=== PATIENT | male | born 1985 | race Caucasian/White ===

== ENCOUNTER 2018-07-06 17:22 | Inpatient (IN) ==
[2018-07-06 18:30] LABS: Apearance,Urine CLEAR (Clear); Bilirubin,Urine Negative (Negative); Blood, Urine Small mg/dL (Negative); Glucose,Urine (UA) Negative (Negative); Ketones,Urine Negative (Negative); Mucus,Urine Occasional /LPF (Occasional); Nitrite,Urine Negative (Negative); Protein,Urine 30 MG/DL; RBC,Urine 5 /HPF (0-4); Squamous Epithelial Cell,Urine Occasional /HPF (0-10); Urine Color Yellow (Yellow); Urine Specific Gravity 1.016 (1.001-1.035); Urine Urobilinogen < 2.0 EU/DL (0.2-1.0); WBC,Urine 6 /HPF (0-6)
[2018-07-06] MEDS ORDERED: SODIUM CHLORIDE 0.9% 1,000 ML IV STA (18:34)
[2018-07-06] MEDS ORDERED: LEVOFLOXACIN INJ 750 MG in PREMIX 1 EACH IV STA (18:34)
[2018-07-06] MEDS ORDERED: IBUPROFEN 800 MG TABLET PO STA (18:34)
[2018-07-06] MEDS ORDERED: VANCOMYCIN INJ 1,000 MG in SODIUM CHLORIDE 0.9% 250 ML IV STA ×2 (18:34→18:59)
[2018-07-06 19:37] LABS: Basophils % 0.2 % (0.0-0.8); Eosinophils # 0.1 10*3/uL (0.0-0.87); Eosinophils % 0.6 % (0.00-10.9); Hematocrit 43.5 VOL% (42.0-52.0); Hemoglobin 14.5 GM/DL (14.0-18.0); Immature Granulocytes % 0.4 %; Immature Granulocytes Absolute 0.05 #; Lymphocytes # 1.1 10*3/uL (1.4-4.0); Lymphocytes % 9.1 % (21.2-54.2); Mean Corpuscular HGB Conc 33.3 GM/DL (32-36); Mean Corpuscular Hemoglobin 29 PG (27-34); Mean Corpuscular Volume 85.8 FL (87-102); Monocytes # 1.1 10*3/uL (0.11-0.8); Monocytes % 9.4 % (1.7-12.7); Neutrophils # 9.8 10*3/uL (1.4-7.4); Neutrophils % 80.3 % (38.7-73.9); Platelet Count 340 T/CUMM (130-400); Red Blood Count 5.07 MC/CUMM (3.8-5.5); Red Cell Distribution Width 12.9 % (9.3-17.3); White Blood Count 12.2 T/CUMM (4-12)
[2018-07-06] MEDS ORDERED: DOCUSATE SODIUM 100 MG CAPSULE PO PRN (20:21)
[2018-07-06] MEDS ORDERED: ACETAMINOPHEN 325 MG TABLET PO PRN (20:21)
[2018-07-06] MEDS ORDERED: ONDANSETRON 4 MG/2 ML VIAL IV PRN (20:21)
[2018-07-06] MEDS ORDERED: ZALEPLON 5 MG CAPSULE PO PRN (20:21)
[2018-07-06 20:52] LABS: HIV Antigen/Antibody Result Nonreactive (Nonreactive)
[2018-07-06] MEDS ORDERED: KETOROLAC 30 MG/1 ML VIAL IV STA (21:19)
[2018-07-06 21:20] LABS: Barbiturates Screen,Urine Negative (Negative); Benzodiazepines Screen,Urine Negative (Negative); Cannabinoid Screen,Urine Positive (Negative); Opiate Screen,Urine Negative (Negative); Phencyclidine Screen,Urine Negative (Negative)
[2018-07-06 21:24] LABS: Sedimentation Rate-Westergren 15 MM/HR (0-15)
[2018-07-06] MEDS: SODIUM CHLORIDE 0.45% 1,000 ML IV SCH (23:28)
[2018-07-06] MEDS: HYDROmorphone 2 MG/1 ML VIAL IV PRN (23:34)
[2018-07-06] MEDS: ENOXAPARIN 40 MG/0.4 ML SYRINGE SUBCUT SCH (23:40)
[2018-07-07] MEDS: HYDROmorphone 2 MG/1 ML VIAL IV PRN (05:06)
[2018-07-07 07:35] LABS: Basophils % 0.2 % (0.0-0.8); Eosinophils # 0.1 10*3/uL (0.0-0.87); Eosinophils % 0.8 % (0.00-10.9); Hematocrit 36.9 VOL% (42.0-52.0); Immature Granulocytes % 0.4 %; Immature Granulocytes Absolute 0.05 #; Lymphocytes # 0.7 10*3/uL (1.4-4.0); Lymphocytes % 5.6 % (21.2-54.2); Mean Corpuscular HGB Conc 33.3 GM/DL (32-36); Mean Corpuscular Hemoglobin 29 PG (27-34); Mean Platelet Volume 10.1 FL (9.6-12.0); Monocytes # 0.7 10*3/uL (0.11-0.8); Monocytes % 5.8 % (1.7-12.7); Neutrophils % 87.2 % (38.7-73.9); Red Blood Count 4.29 MC/CUMM (3.8-5.5); Red Cell Distribution Width 13.1 % (9.3-17.3); White Blood Count 11.5 T/CUMM (4-12)
[2018-07-07 07:41] LABS: Hemoglobin 12.3 GM/DL (14.0-18.0); Platelet Count 257 T/CUMM (130-400)
[2018-07-07] MEDS ORDERED: IBUPROFEN 800 MG TABLET PO PRN (07:54)
[2018-07-07 07:58] LABS: Albumin 2.9 G/DL (3.4-5.0); Bilirubin,Total 0.8 MG/DL (0.2-1.0); Calcium 8.1 MG/DL (8.5-10.1); Potassium 3.9 MMOL/L (3.5-5.1); Total Protein 6.9 G/DL (6.4-8.3)
[2018-07-07] MEDS: KETOROLAC 30 MG/1 ML VIAL IV PRN ×2 (08:57→15:11)
[2018-07-07] MEDS: SODIUM CHLORIDE 0.45% 1,000 ML IV SCH ×2 (09:04→17:24)
[2018-07-07] MEDS: VANCOMYCIN INJ 1,250 MG in SODIUM CHLORIDE 0.9% 250 ML IV SCH ×2 (09:19→21:34)
[2018-07-07] MEDS ORDERED: VANCOMYCIN IV ONE (09:30)
[2018-07-07 11:05] LABS: Rapid Plasma Reagin Confirm REACTIVE (Nonreactive)
[2018-07-07] MEDS ORDERED: LEVOFLOXACIN INJ 500 MG in PREMIX 1 EACH IV SCH (21:00)
[2018-07-07] MEDS: ENOXAPARIN 40 MG/0.4 ML SYRINGE SUBCUT SCH (21:36)
[2018-07-08] MEDS: SODIUM CHLORIDE 0.45% 1,000 ML IV SCH ×2 (03:17→21:34)
[2018-07-08] MEDS: VANCOMYCIN INJ 1,250 MG in SODIUM CHLORIDE 0.9% 250 ML IV SCH ×2 (08:00→21:33)
[2018-07-08] MEDS ORDERED: BICILLIN LA 2,400,000 UNIT/4 ML SYRINGE IM ONE (09:00)
[2018-07-08] MEDS: KETOROLAC 30 MG/1 ML VIAL IV PRN (20:40)
[2018-07-08] MEDS: ENOXAPARIN 40 MG/0.4 ML SYRINGE SUBCUT SCH (21:34)
[2018-07-09 03:31] VITALS: BP 140/91
== END 2018-07-09 05:32 | disposition left against medical advice (07) | DRG 868 ==
LOC: N.ED 17:22 → N.EDINP 20:21 → N.5E 21:23